=== PATIENT | female | born 1970 | race Caucasian/White ===

== ENCOUNTER 2022-07-17 13:25 | Emergency (ER) | payer OTHER ==
[2022-07-17 13:34] VITALS: TEMP 97.7
--- NOTE | 2022-07-17 13:35 | ED ---
General Adult HPI - General Source: patient, RN notes reviewed Mode of arrival: ambulatory Limitations: no limitations <Justen Ribeiro - Last Filed: 07/17/22 13:35> - General Source: patient, RN notes reviewed Mode of arrival: ambulatory Limitations: no limitations - History of Present Illness MD Complaint: back pain, hematuria <Noris Gonzalez - Last Filed: 07/17/22 19:24> - General Chief complaint: Back Pain/Injury Stated complaint: fall & back pain, blood in urine Time Seen by Provider: 07/17/22 13:35 - History of Present Illness Initial comments: 52-year-old female presents emergency Department chief complaint of fall. Patient states she fell yesterday she lost her footing and fell backwards. She complains of low back pain. Patient states that it hurts to move twist and bend. She denies any bowel, bladder incontinence or retention. She states that he noticed that there is some blood in her urine is unsure if this is related. No head injury no other associated complaints of trauma. (Justen Ribeiro) While obtaining history from the patient, she states that when she fell, her lower back hit the sink in her bathroom. Afterwards, she started noticing blood in her urine. She is unsure if the blood is coming out of the vagina or urethra. Her last menstrual period was 07/01, and she does not believe that her period is the cause of her symptoms. She has minor associated abdominal pain/pressure. Denies any nausea or vomiting. Denies any fevers, chills, sore throat, cough, dyspnea, chest pain, palpit ations, nausea, vomiting, diarrhea, or headaches. (Noris Gonzalez) - Related Data Previous Rx's Medication Instructions Recorded Albuterol Inhaler [Ventolin Hfa 1 - 2 puff INHALATION Q4-6H PRN #1 10/27/14 Inhaler] inhaler Azithromycin [Zithromax] 250 mg PO DIRECTED #6 tab 10/27/14 predniSONE 50 mg PO DAILY #5 tab 10/27/14 Albuterol Inhaler [Ventolin Hfa 2 puff INHALATION Q4HR PRN #1 12/19/14 Inhaler] inhaler Azithromycin [Zithromax Z-pack (6 0 mg PO DIRECTED #6 tab 12/19/14 tabs)] Nitrofurantoin Monohyd/M-Cryst 100 mg PO Q12HR 5 Days #10 cap 07/17/22 [Macrobid] Allergies Allergy/AdvReac Type Severity Reaction Status Date / Time acetaminophen Allergy Unknown Verified 10/27/14 15:53 [From Darvocet-N] propoxyphene napsylate Allergy Unknown Verified 10/27/14 15:53 [From Darvocet-N] Review of Systems ROS Other: All systems not noted in ROS Statement are negative. <Justen Ribeiro - Last Filed: 07/17/22 13:35> ROS Other: All systems not noted in ROS Statement are negative. <Noris Gonzalez - Last Filed: 07/17/22 19:24> ROS Statement: Those systems with pertinent positive or pertinent negative responses have been documented in the HPI. Past Medical History Past Medical History: No Reported History Additional Past Medical History / Comment(s): hx of bronchitis History of Any Multi-Drug Resistant Organisms: None Reported Past Surgical History: Section Past Psychological History: No Psychological Hx Reported Past Alcohol Use History: None Reported Past Drug Use History: None Reported <Justen Ribeiro - Last Filed: 07/17/22 13:35> General Exam Limitations: no limitations <Justen Ribeiro - Last Filed: 07/17/22 13:35> General appearance: alert, in no apparent distress Head exam: Present: atraumatic, normocephalic, normal inspection Respiratory exam: Present: normal lung sounds bilaterally. Absent: respiratory distress, wheezes, rales, rhonchi, stridor Cardiovascular Exam: Present: regular rate, normal rhythm, normal heart sounds. Absent: systolic murmur, diastolic murmur, rubs, gallop, clicks GI/Abdominal exam: Present: soft, normal bowel sounds. Absent: distended, tenderness, guarding, rebound, rigid Back exam: Present: normal inspection, full ROM. Absent: tenderness, CVA te nderness (R), CVA tenderness (L) Neurological exam: Present: alert, oriented X3, CN II-XII intact Psychiatric exam: Present: normal affect, normal mood Skin exam: Present: warm, dry, intact, normal color. Absent: rash <Noris Gonzalez - Last Filed: 07/17/22 19:24> Course Vital Signs 07/17/22 07/17/22 13:29 17:08 Temperature 97.7 F Pulse Rate 98 79 Respiratory 16 18 Rate Blood Pressure 165/91 118/81 O2 Sat by Pulse 97 97 Oximetry Medical Decision Making - Lab Data Result diagrams: 07/17/22 14:07 07/17/22 14:01 - Radiology Data Radiology results: report reviewed, image reviewed <Noris Gonzalez - Last Filed: 07/17/22 19:24> - Medical Decision Making This is a 52-year-old female who presents to the emergency department for low back pain and hematuria. Was pt. sent in by a medical professional or institution? @ -No Did you speak to anyone other than the patient for history? @ -No Did you review nursing and triage notes? @ -Agree, accurate with regards to the patient's symptoms. Were old charts reviewed? @ -No Differential Diagnosis? @ -Differential Back Pain: Strain, zoster, cauda equina syndrome, epidural abscess, vertebral osteomyelitis, discitis, fracture, subluxation, disc herniation, DJD, spinal stenosis, dissection, AAA, pancreatitis, peptic ulcer disease, pyelonephritis, kidney stone, this is not meant to be an all-inclusive list. X-rays interpreted by me (1pt min.)? @ -X-ray of the lumbar spine identifies no acute fractures or dislocations. CT interpreted by me (1pt min.)? @ -Computed tomography scan of the abdomen and pelvis reveals no evidence of hydronephrosis or ureteral calculus. What testing was considered but not performed? (CT, X-rays, U/S, labs)? Why? @ -None What meds were considered but not given? Why? @ -None Did you discuss the management of the patient with other professionals? @ -No Did you reconcile home meds? @ -No Was smoking cessation discussed for >3mins.? @ -No Was critical care preformed (if so, how long)? @ -No Were there social determinants of health that impacted care today? How? (Homele ssness, low income, unemployed, alcoholism, drug addiction, transportation, low edu. Level, literacy, decrease access to med. care, detention, rehab)? @ -No Was there de-escalation of care discussed even if they declined? (Discuss DNR or withdrawal of care, Hospice)? @ -No What co-morbidities impacted this encounter? (DM, HTN, Smoking, COPD, CAD, Cancer, CVA, Hep., AIDS, mental health diagnosis, sleep apnea, morbid obesity)? @ -None Was patient admitted / discharged? @ -Discharged. X-ray of the lumbar spine obtained revealing no acute abnormalities. Given the difficulty in determining whether the blood was coming from the urethra versus vagina, pelvic ultrasound and computed tomography scan of the abdomen and pelvis were obtained. None of the imaging identified any notable abnormalities to account for the patient's symptoms. When the patient gave a urine sample, her urine was red, suggesting this is more likely related to a hematuria versus vaginal bleeding. Urinalysis may be consistent with an infection, given that this can be a cause of hematuria, will treat with a course of antibiotics. Prescription for Macrobid provided with dosing instructions reviewed. Advised ibuprofen as needed for pain relief. Information for urology follow-up provided, she is instructed to contact them for an appointment. Drug Therapy requiring intensive monitoring for toxicity (Heparin, Nitro, Insulin, Cardizem)? @ -None Were any procedures done? @ -None Diagnosis/symptom? @ -Hematuria Acute, or Chronic, or Acute on Chronic? @ -Acute Uncomplicated (without systemic symptoms) or Complicated (systemic symptoms)? @ -Uncomplicated Side effects of treatment? @ -None Exacerbation, Progression, or Severe Exacerbation] @ -Not applicable Poses a threat to life or bodily function? @ -No Diagnosis/symptom? @ -Lower back pain Acute, or Chronic, or Acute on Chronic? @ -Acute Uncomplicated (without systemic symptoms) or Complicated (systemic symptoms)? @ -Uncomplicated Side effects of treatment? @ -None Exacerbation, Progression, or Severe Exacerbation] @ -Not applicable Poses a threat to life or bodily function? @ -May impact her ability to function if the pain is severe enough. Return precautions reviewed in depth, the patient is instructed to return to the emergency department with any new, worsening, or concerning symptoms. Patient verbalized understanding. This case was discussed in detail with the attending ED physician. Presentation, findings, and treatment plan discussed in detail as well. (Noris Gonzalez) - Lab Data Lab Results 07/17/22 07/17/22 07/17/22 Range/Units 14:01 14:01 14:01 WBC (3.8-10.6) k/uL RBC (3.80-5.40) m/uL Hgb (11.4-16.0) gm/dL Hct (34.0-46.0) % MCV (80.0-100.0) fL MCH (25.0-35.0) pg MCHC (31.0-37.0) g/dL RDW (11.5-15.5) % Plt Count (150-450) k/uL MPV Neutrophils % % Lymphocytes % % Monocytes % % Eosinophils % % Basophils % % Neutrophils # (1.3-7.7) k/uL Lymphocytes # (1.0-4.8) k/uL Monocytes # (0-1.0) k/uL Eosinophils # (0-0.7) k/uL Basophils # (0-0.2) k/uL Sodium 140 (137-145) mmol/L Potassium 3.9 (3.5-5.1) mmol/L Chloride 107 (98-107) mmol/L Carbon Dioxide 24 (22-30) mmol/L Anion Gap 9 mmol/L BUN 3 L (7-17) mg/dL Creatinine 0.59 (0.52-1.04) mg/dL Est GFR (CKD-EPI)AfAm >90 (>60 ml/min/1.73 sqM) Est GFR (CKD-EPI)NonAf >90 (>60 ml/min/1.73 sqM) Glucose 90 (74-99) mg/dL Calcium 9.3 (8.4-10.2) mg/dL Total Bilirubin 0.6 (0.2-1.3) mg/dL AST 21 (14-36) U/L ALT 13 (4-34) U/L Alkaline Phosphatase 40 (38-126) U/L Total Protein 8.0 (6.3-8.2) g/dL Albumin 4.8 (3.5-5.0) g/dL Urine Color Dark Red Urine Appearance Cloudy H (Clear) Urine pH 6.5 (5.0-8.0) Ur Specific Wever 1.009 (1.001-1.035) Urine Protein 2+ H (Negative) Urine Glucose (UA) Negative (Negative) Urine Ketones Negative (Negative) Urine Blood Large H (Negative) Urine Nitrite Negative (Negative) Urine Bilirubin Negative (Negative) Urine Urobilinogen <2.0 (<2.0) mg/dL Ur Leukocyte Esterase Moderate H (Negative) Urine RBC >182 H (0-5) /hpf Urine WBC 35 H (0-5) /hpf Ur Squamous Epith Cells 1 (0-4) /hpf Urine Bacteria Rare H (None) /hpf Urine Mucus Rare H (None) /hpf Urine HCG, Qual Not Detected (Not Detectd) 07/17/22 Range/Units 14:07 WBC 8.3 (3.8-10.6) k/uL RBC 4.63 (3.80-5.40) m/uL Hgb 15.0 (11.4-16.0) gm/dL Hct 45.1 (34.0-46.0) % MCV 97.6 (80.0-100.0) fL MCH 32.4 (25.0-35.0) pg MCHC 33.2 (31.0-37.0) g/dL RDW 11.7 (11.5-15.5) % Plt Count 443 (150-450) k/uL MPV 7.4 Neutrophils % 61 % Lymphocytes % 29 % Monocytes % 6 % Eosinophils % 1 % Basophils % 1 % Neutrophils # 5.1 (1.3-7.7) k/uL Lymphocytes # 2.4 (1.0-4.8) k/uL Monocytes # 0.5 (0-1.0) k/uL Eosinophils # 0.1 (0-0.7) k/uL Basophils # 0.1 (0-0.2) k/uL Sodium (137-145) mmol/L Potassium (3.5-5.1) mmol/L Chloride (98-107) mmol/L Carbon Dioxide (22-30) mmol/L Anion Gap mmol/L BUN (7-17) mg/dL Creatinine (0.52-1.04) mg/dL Est GFR (CKD-EPI)AfAm (>60 ml/min/1.73 sqM) Est GFR (CKD-EPI)NonAf (>60 ml/min/1.73 sqM) Glucose (74-99) mg/dL Calcium (8.4-10.2) mg/dL Total Bilirubin (0.2-1.3) mg/dL AST (14-36) U/L ALT (4-34) U/L Alkaline Phosphatase (38-126) U/L Total Protein (6.3-8.2) g/dL Albumin (3.5-5.0) g/dL Urine Color Urine Appearance (Clear) Urine pH (5.0-8.0) Ur Specific Wever (1.001-1.035) Urine Protein (Negative) Urine Glucose (UA) (Negative) Urine Ketones (Negative) Urine Blood (Negative) Urine Nitrite (Negative) Urine Bilirubin (Negative) Urine Urobilinogen (<2.0) mg/dL Ur Leukocyte Esterase (Negative) Urine RBC (0-5) /hpf Urine WBC (0-5) /hpf Ur Squamous Epith Cells (0-4) /hpf Urine Bacteria (None) /hpf Urine Mucus (None) /hpf Urine HCG, Qual (Not Detectd) Disposition <Justen Ribeiro - Last Filed: 07/17/22 13:35> Is patient prescribed a controlled substance at d/c from ED?: No <Noris Gonzalez - Last Filed: 07/17/22 19:24> Clinical Impression: Hematuria, Back pain Disposition: HOME SELF-CARE Instructions (If sedation given, give patient instructions): Hematuria (ED), Acute Low Back Pain (ED) Additional Instructions: Return to the emergency department with any new, worsening, or concerning symptoms. Take the antibiotic as prescribed for 5 days. Take ibuprofen as need ed for pain relief. Contact urology as listed below for a follow-up appointment. Follow up with your primary care provider in 1-2 days. Prescriptions: Nitrofurantoin Monohyd/M-Cryst [Macrobid] 100 mg PO Q12HR 5 Days #10 cap Referrals: Richard Lehman Jr, DO [Primary Care Provider] - 1-2 days Cosmo Waters MD [STAFF PHYSICIAN] - 1-2 days
[2022-07-17 14:11] LABS: Basophils # (A) 0.1 k/uL (0-0.2); Basophils % (A) 1 %; Eosinophils # (A) 0.1 k/uL (0-0.7); Eosinophils % (A) 1 %; HCT 45.1 % (34.0-46.0); Lymphocytes # (A) 2.4 k/uL (1.0-4.8); Lymphocytes % (A) 29 %; MCH 32.4 pg (25.0-35.0); MCHC 33.2 g/dL (31.0-37.0); MCV 97.6 fL (80.0-100.0); Mean Platelet Volume 7.4; Monocytes # (A) 0.5 k/uL (0-1.0); Monocytes % (A) 6 %; Neutrophils # (A) 5.1 k/uL (1.3-7.7); Neutrophils % (A) 61 %; Platelet Count 443 k/uL (150-450); RBC 4.63 m/uL (3.80-5.40); RDW 11.7 % (11.5-15.5); WBC 8.3 k/uL (3.8-10.6)
--- NOTE | 2022-07-17 14:14 | XR ---
EXAMINATION TYPE: XR lumbar spine 2 or 3V DATE OF EXAM: 07/17/2022 2:10 PM INDICATION: Patient age:Female; 52 years old; Reason for study: fall, pain; COMPARISON: None TECHNIQUE: Frontal and lateral views of the spine. FINDINGS: No evidence of any acute osseous pathology. No evidence of loss of vertebral body height i s seen. There is normal alignment of the lumbar vertebral bodies. No significant degeneration changes throughout the spine. IMPRESSION: No acute fracture.
[2022-07-17 14:22] LABS: Appearance,Urine Cloudy (Clear); Bacteria,Urine Rare /hpf; Bilirubin,Urine Negative (Negative); Blood,Urine Large (Negative); Color,Urine Dark Red; Glucose,Urine (UA) Negative (Negative); Ketones,Urine Negative (Negative); Leukocyte Esterase,Urine Moderate (Negative); Mucus,Urine Rare /hpf; Nitrite,Urine Negative (Negative); PH, Urine 6.5 (5.0-8.0); Protein,Urine 2+ (Negative); RBC,Urine >182 /hpf (0-5); Specific Gravity,Urine 1.009 (1.001-1.035); Squamous Epithelial Cell,Urine 1 /hpf (0-4); Urobilinogen,Urine <2.0 mg/dL (<2.0); WBC,Urine 35 /hpf (0-5)
[2022-07-17 14:26] LABS: ALT 13 U/L (4-34); AST 21 U/L (14-36); African American GFR (CKD) >90 (>60 ml/min/1.73 sqM); Albumin 4.8 g/dL (3.5-5.0); Alkaline Phosphatase 40 U/L (38-126); Anion Gap 9 mmol/L; Blood Urea Nitrogen 3 mg/dL (7-17); Calcium 9.3 mg/dL (8.4-10.2); Carbon Dioxide 24 mmol/L (22-30); Chloride 107 mmol/L (98-107); Glucose 90 mg/dL (74-99); Non-African American GFR(CKD) >90 (>60 ml/min/1.73 sqM); Potassium 3.9 mmol/L (3.5-5.1); Sodium 140 mmol/L (137-145); Total Bilirubin 0.6 mg/dL (0.2-1.3)
--- NOTE | 2022-07-17 15:39 | US ---
EXAMINATION TYPE: US transvaginal DATE OF EXAM: 07/17/2022 COMPARISON: NONE CLINICAL HISTORY: Vaginal bleeding, abdominal pain. Back pain after a fall 3 days ago, landed on her back. Vaginal bleeding for 2 days. Pelvic pain after fall TECHNIQUE: Transvaginal (TV) Date of LMP: 07/01/22 EXAM MEASUREMENTS: Uterus: 7.6 x 4.2 x 4.8 cm Endometrial Stripe: 0.6 cm Right Ovary: unable to visualize Left Ovary: 2.6 x 1.5 x 1.5 cm 1. Uterus: Anteverted nabothian cysts. Heterogeneous in appearance 2. Endometrium: wnl 3. Right Ovary: Obscured by overlying bowel gas 4. Left Ovary: follicles noted Spectral, color and waveform doppler imaging shows good arterial and venous flow within the left ov emmett; 5. Bilateral Adnexa: wnl 6. Posterior cul-de-sac: wnl Tiny nabothian cysts in the cervix. Endometrial stripe somewhat thin for secretory phase of menstrual cycle. No free fluid. Left ovary is seen with few peripheral follicles. Right ovary not clearly iden tified. No suspicious adnexal masses. IMPRESSION: No acute findings are evident.
--- NOTE | 2022-07-17 16:34 | CT ---
EXAMINATION TYPE: CT abdomen pelvis wo con CT DLP: 323.1 mGycm, Automated exposure control for dose reduction was used. DATE OF EXAM: 07/17/2022 4:27 PM COMPARISON: None CLINICAL INDICATION:Female, 52 years old with history of Back injury, hematuria; flank pain, hematuri a TECHNIQUE: Axial CT of the abdomen and pelvis. Sagittal and coronal reformats were created on a [employer] workstation. Contrast used: None Oral contrast used: without Oral Contrast FINDINGS: LOWER CHEST: Unremarkable ABDOMEN LIVER: Unremarkable GALLBLADDER AND BILE DUCTS: Unremarkable. PANCREAS: Unremarkable. SPLEEN: Unremarkable. ADRENAL GLANDS: Unremarkable. KIDNEYS AND URETERS: Nonobstructing left 3 mm calculus. No evidence of hydronephrosis. No evidence of right renal calculi. No hydronephrosis. PELVIS BLADDER: Unremarkable REPRODUCTIVE: Unremarkable. ABDOMEN & PELVIS STOMACH AND BOWEL: No evidence of bowel obstruction. Appendix not definitely visualized. PERITONEUM/RETROPERITONEUM: No evidence of pneumoperitoneum or free fluid. . VASCULATURE: No evidence of aortic aneurysm. Atherosclerosis of the arterial vasculature. Mild multil evel disc degeneration changes throughout the spine. MUSCULOSKELETAL: No acute osseous pathology. LYMPH NODES: No gross evidence for lymphadenopathy. SOFT TISSUE/ABDOMINAL WALL: Unremarkable IMPRESSION: No evidence of obstructive uropathy. Nonobstructing left renal calculus. No acute intracranial proces s.
[2022-07-17 17:09] VITALS: BP 118/81; PULSE 79; RESP 18
== END 2022-07-17 17:14 | disposition home or self-care (01) ==
LOC: EC 13:25
DX: R31.9 Hematuria, unspecified (principal); M54.50 Low back pain, unspecified; Z88.6 Allergy status to analgesic agent; Z88.5 Allergy status to narcotic agent
CPT/HCPCS: 36415; 72100; 74176; 76830; 80053; 81001; 81025; 85025; 87086; 93976; 99284